=== PATIENT | male | born 1980 | race Caucasian/White ===

== ENCOUNTER 2017-04-07 08:02 | Outpatient (POV) | payer OTHER, SELFPAY | END 2017-04-07 11:02 | disposition home or self-care (01) | PROVIDERS: Visit Provider Podiatrist | DX: M19.171 Post-traumatic osteoarthritis, right ankle and foot (principal) | CPT/HCPCS: 99202; 20600; J1100; J3301; 73630; 73650 ==

== ENCOUNTER → 2018-03-03 09:21 | Outpatient (CLI) | payer OTHER, SELFPAY ==
--- NOTE | 2018-03-03 09:25 | XR_ITS ---
XR foot wt bearing RT 3V HISTORY: ITS.REASON: pain ORDERING PHYSICIAN: Latrice Dickson DPM PATIENT AGE: 37 years COMPARISON: 04/07/2017 FINDINGS: No fracture or dislocation. No lytic or blastic change. There is normal mineralization.. The joint spaces are well-preserved. No significant degenerative/arthritic changes. No erosive changes evident. Sclerosis noted along superior aspect of the calcaneus which may reflect old trauma/degenerative change as previously described lucency along the posterior aspect of the calcaneus possibly due to old external fixator. IMPRESSION: No change with no acute finding. Please see above for detail
--- NOTE | 2018-03-03 09:25 | XR_ITS ---
XR calcaneus RT min 2V CLINICAL INDICATION: Calcaneal pain, prior fracture ITS.REASON: pain ORDERING PHYSICIAN: Latrice Dickson DPM PATIENT AGE: 37 years Comparison: 04/07/2017 FINDINGS: There remains a lucent focus in the posterior aspect of the calcaneus which may represent site of the previous external fixator. There remains sclerosis in the superior aspect of the calcaneus at the mid and posterior subtalar region which may reflect degenerative changes as previously described and may be due to old trauma. Os peroneum once again noted. Overall no significant change compared to the previous study. There is a small area of exostosis along the medial aspect of the calcaneus in the mid aspect seen on the PA view unchanged. IMPRESSION: Overall no change in the appearance of the calcaneus with sclerosis in the subtalar region with postsurgical defect in the posterior calcaneus
== END ==
PROVIDERS: Visit Provider Podiatrist
DX: M19.92 Post-traumatic osteoarthritis, unspecified site (principal); M79.673 Pain in unspecified foot
CPT/HCPCS: 73630; 73650

== ENCOUNTER → 2018-08-25 12:21 | Outpatient (CLI) | payer OTHER, SELFPAY ==
[2018-08-25 13:04] LABS: Basophils # 0.1 K/mm3 (0-0.2); Basophils % 0.7 % (0.1-2.0); Eosinophils # 0.1 K/mm3 (0.0-0.4); Eosinophils % 1.6 % (0.1-12.0); Hematocrit 50.1 % (42.0-52.0); Hemoglobin 17.5 g/dL (14.1-18.0); Lymphocytes # 2.3 K/mm3 (0.7-4.5); Lymphocytes % 33.5 % (10-50); Mean Corpuscular HGB Conc 34.8 g/dL (31.8-35.4); Mean Corpuscular Hemoglobin 30.8 pg (27.0-31.2); Mean Corpuscular Volume 88.4 fl (80-94); Mean Platelet Volume 7.5 fl (7.4-10.4); Monocytes # 0.5 K/mm3 (0.1-1.0); Monocytes % 7.6 % (1.7-9.3); Neutrophils # 3.9 K/mm3 (1.8-7.8); Neutrophils % 56.6 % (37.0-80.0); Platelet Count 194 K/mm3 (142-424); Red Blood Count 5.67 M/mm3 (4.60-6.20); White Blood Count 6.8 K/mm3 (4.8-10.8)
[2018-08-25 15:05] LABS: Alanine Aminotransferase 227 U/L (12-78); Albumin Level 3.7 gm/dL (3.4-5.0); Albumin/Globulin Ratio 0.9 (1.1-1.8); Alkaline Phosphatase 81 U/L (46-116); Anion Gap 10.5 mEq/L (5-15); Aspartate Amino Transferase 109 U/L (15-37); Bilirubin,Total 0.8 mg/dL (0.2-1.0); Blood Urea Nitrogen 10 mg/dL (7-18); Calcium 8.8 mg/dL (8.5-10.1); Carbon Dioxide 28 mmol/L (21.0-32.0); Chloride 105 mmol/L (98-107); Chol/HDL Ratio 4.4 (1-3.5); Cholesterol 221 mg/dL (140-200); Creatinine,Serum 0.96 mg/dL (0.70-1.30); Estimated Glomerular Filt Rate 87 ml/min (>60); GFR (African American) 106 ML/MIN (>60); Globulin 4.2 gm/dl (1.3-3.2); Glucose 128 mg/dL (74-106); HDL Cholesterol 50 mg/dL (27-67); LDL Cholesterol 156 mg/dL (0-130); Potassium 4.5 mmoL/L (3.5-5.1); Sodium 139 mmol/L (136-145); T4 (Thyroxine) 10.3 ug/dl (4.7-13.3); Thyroid Stimulating Hormone 1.74 uIU/ml (0.358-3.740); Total Protein,Serum 7.9 gm/dL (6.4-8.2); Triglycerides 77 mg/dL (30-200); VLDL Cholesterol 15 mg/dL (0-40)
[2018-08-26 11:20] LABS: Hep A Ab, IgM Negative (Negative); Hepatitis B Core Antibody IgM Negative (Negative)
[2018-08-26 13:57] LABS: Hepatitis B Surface Antigen Positive (Negative); Hepatitis C Antibody >11.0 s/co ratio (0.0-0.9)
== END ==
PROVIDERS: Visit Provider Nurse Practitioner Family
DX: Z00.00 Encounter for general adult medical examination without abnormal findings (principal); Z13.220 Encounter for screening for lipoid disorders
CPT/HCPCS: 36415; 80053; 80061; 80074; 84436; 84443; 85025

== ENCOUNTER → 2018-09-04 09:51 | Outpatient (CLI) | payer OTHER, SELFPAY ==
[2018-09-04 10:36] LABS: INR 0.98 (0.9-1.1); Prothrombin Time 10.2 seconds (9.4-11.8)
[2018-09-05 07:19] LABS: HIV Screen 4th Generation wRfx Non Reactive (Non Reactive)
[2018-09-05 18:12] LABS: Hep A Ab, Total Negative (Negative)
[2018-09-13 00:06] LABS: HCV Genotype Charge YES; Hepatitis C Genotype 3 (.)
== END ==
PROVIDERS: Visit Provider Nurse Practitioner Family
DX: R76.8 Other specified abnormal immunological findings in serum (principal)
CPT/HCPCS: 36415; 85610; 86703; 86706; 86708; 87522; 87902; G0432

== ENCOUNTER → 2018-11-23 15:03 | Outpatient (CLI) | payer OTHER, SELFPAY ==
--- NOTE | 2018-11-23 15:06 | CT_ITS ---
CT ankle RT wo con INDICATION: Right heel pain, recent injury, posttraumatic, arthritis of subtalar joint, surgical evaluation for arthrodesis with possible graft ITS.REASON: pain, surgical planning ORDERING PHYSICIAN: Latrice Dickson DPM PATIENT AGE: 38 years COMPARISON: 05/18/2015 TECHNIQUE: Contrast Used: Oral Contrast: Axial images were obtained. Sagittal and coronal reformatted images are reviewed as well. All CT scans at the facility use one or more dose reduction, viz: automated exposure control, ma/kV adjustment per patient size (including targeted exams where dose is matched to indication, i.e. head), or iterative reconstruction technique. FINDINGS: There is mild diffuse osteopenia. The talar dome has an unremarkable appearance. Distal tibia and fibula are unremarkable. No acute fracture or dislocation is evident. There is an old fracture involving the mid aspect of the calcaneus. There are moderate to severe osteoarthritic changes of the posterior subtalar joint greater along the lateral aspect. There are some hypertrophic changes at this area along with osteosclerosis and loss of the joint space. There is an os trigonum. The anterior facet and sustentaculum/middle facet has an unremarkable appearance. There is mild generalized soft tissue edema posteriorly in the calcaneal area. IMPRESSION: 1. Old healed calcaneal fracture 2. 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
== END ==
PROVIDERS: PCP Emergency Medicine; Visit Provider Podiatrist
DX: M19.079 Primary osteoarthritis, unspecified ankle and foot (principal); M19.92 Post-traumatic osteoarthritis, unspecified site; M79.673 Pain in unspecified foot
CPT/HCPCS: 73700

== ENCOUNTER → 2018-12-10 12:19 | Outpatient (CLI) | payer OTHER, SELFPAY ==
--- NOTE | 2018-12-10 | ECG_ITS ---
APPROVED REPORT Exam: Resting ECG HR:62 bpm ECG Measurements Heart Rate 62 AXES TN 174 P 71 QRSd 94 QRS 238 QT 386 T 66 QTc 391 <Conclusion> Normal sinus rhythm Right superior axis deviation Incomplete right bundle branch block Abnormal ECG Electronically signed by : Elvis Donaldson, 12/11/2018 17:40:41
--- NOTE | 2018-12-10 12:30 | XR_ITS ---
PROCEDURE: XR CHEST 2V CLINICAL HISTORY: TOBACCO USE, PRE OP Smoker COMPARISON: No exams were available for comparison FINDINGS: The cardiomediastinal silhouette and pulmonary vascularity are within normal limits. The lungs are clear without infiltrates, suspicious nodules, or pleural effusions. No acute bony abnormalities. IMPRESSION: No acute findings. Dictated by: Jn Romero MD 12/10/2018 12:49 Signed by: <Electronically signed by Jn Romero MD in [place]> 12/10/2018 12:49
[2018-12-10 12:54] LABS: Basophils # 0.1 K/mm3 (0-0.2); Basophils % 0.6 % (0.1-2.0); Eosinophils # 0.1 K/mm3 (0.0-0.4); Hemoglobin 15.8 g/dL (14.1-18.0); Lymphocytes # 2.2 K/mm3 (0.7-4.5); Lymphocytes % 26.9 % (10-50); Mean Corpuscular HGB Conc 32.3 g/dL (31.8-35.4); Mean Corpuscular Hemoglobin 29.4 pg (27.0-31.2); Monocytes # 0.7 K/mm3 (0.1-1.0); Monocytes % 8.2 % (1.7-9.3); Neutrophils % 63.3 % (37.0-80.0); Platelet Count 210 K/mm3 (142-424); Red Blood Count 5.38 M/mm3 (4.60-6.20); Red Cell Distribution Width 13.6 % (11.5-17.5)
[2018-12-10 13:25] LABS: Anion Gap 9.3 mEq/L (5-15); Blood Urea Nitrogen 9 mg/dL (7-18); Calcium 9.4 mg/dL (8.5-10.1); Carbon Dioxide 29 mmol/L (21.0-32.0); Chloride 104 mmol/L (98-107); Creatinine,Serum 0.99 mg/dL (0.70-1.30); Estimated Glomerular Filt Rate 84 ml/min (>60); GFR (African American) 101 ML/MIN (>60); Glucose 86 mg/dL (74-106); Potassium 4.3 mmoL/L (3.5-5.1); Sodium 138 mmol/L (136-145)
[2018-12-11 09:51] LABS: Vitamin D 25 Hydroxy 24.3 ng/mL (30.0-100.0)
[2019-01-12 10:55] LABS: Nicotine COMMENT:
[2019-01-12 10:56] LABS: Cotinine COMMENT:
== END ==
PROVIDERS: Visit Provider Podiatrist
DX: Z01.818 Encounter for other preprocedural examination (principal); M19.071 Primary osteoarthritis, right ankle and foot
CPT/HCPCS: 36415; 71046; 80048; 80323; 82652; 85025; 93005

== ENCOUNTER → 2019-01-14 11:05 | Outpatient (CLI) | payer OTHER, SELFPAY ==
--- NOTE | 2019-01-14 11:08 | XR_ITS ---
PROCEDURE: XR CALCANEUS RT MIN 2V CLINICAL INDICATION: fracture/dislocation Follow-up fracture/ORIF COMPARISON: XR CALCANEUS RT MIN 2V from 12/11/2018 XR ANKLE WT BEARING RT MIN 3V from 01/14/2019 XR FOOT WT BEARING RT 3V from 01/14/2019 FINDINGS: Status post posterior subtalar fusion with 2 lag screws from the posterior aspect of the calcaneus extending obliquely into the talus. Joint space is less well-defined but still visible at the posterior talocalcaneal region. The ankle joint has an unremarkable appearance. There is a prominent os trigonum. There is some faint density noted along the lateral aspect of the ankle/foot and may be related to artifact on the patient or some soft tissue calcification. The mid and forefoot have an unremarkable appearance. IMPRESSION: Status post posterior talocalcaneal fusion. The posterior subtalar joint space is somewhat less well-defined but is still visible Dictated by: Jn Romero MD 01/14/2019 13:03 Electronically signed by Jn Romero MD in [place] 01/14/2019 13:03
== END ==
PROVIDERS: PCP Nurse Practitioner Family; Visit Provider Podiatrist
DX: Z98.890 Other specified postprocedural states (principal); M19.171 Post-traumatic osteoarthritis, right ankle and foot; M21.6X1 Other acquired deformities of right foot; M19.071 Primary osteoarthritis, right ankle and foot; M79.671 Pain in right foot
CPT/HCPCS: 73610; 73630; 73650

== ENCOUNTER → 2019-02-11 10:27 | Outpatient (CLI) | payer OTHER, SELFPAY ==
--- NOTE | 2019-02-11 10:30 | XR_ITS ---
PROCEDURE: XR FOOT WT BEARING RT 3V CLINICAL INDICATION: post-op Follow-up surgery COMPARISON: [id number] XR foot wt bearing RT 3V from 03/03/2018 XR FOOT RT MIN 3V from 12/11/2018 XR FOOT RT 2V from 12/11/2018 XR FOOT WT BEARING RT 3V from 01/14/2019 XR CALCANEUS RT MIN 2V from 01/14/2019 XR CALCANEUS RT MIN 2V from 02/11/2019 FINDINGS: Status post posterior subtalar joint arthrodesis with 2 lag screws extending from the posterior inferior aspect of the calcaneus into the posterior talus. The joint space is somewhat less apparent posteriorly but still visible on the dedicated calcaneal images. IMPRESSION: Status post posterior subtalar joint fusion with the joint space being somewhat less apparent indicating partial fusion. Good alignment. Dictated by: Jn Romero MD 02/11/2019 15:20 Electronically signed by Jn Romero MD in [place] 02/11/2019 15:20
== END ==
PROVIDERS: PCP Nurse Practitioner Family; Visit Provider Podiatrist
DX: Z98.890 Other specified postprocedural states (principal); M19.171 Post-traumatic osteoarthritis, right ankle and foot
CPT/HCPCS: 73630; 73650

== ENCOUNTER 2019-02-25 08:00 | Outpatient (RCR) | payer OTHER, SELFPAY ==
--- NOTE | 2019-02-01 08:42 | HMH.PTOPEV ---
PT Outpatient Evaluation Rehab PT Outpatient Evaluation Start: 02/01/19 08:28 Freq: Status: Active Protocol: Document 02/01/19 08:28 CAMILO (Rec: 02/01/19 08:41 CAMILO [id number]) Electronically Signed By Geo Calhoun, PT 02/01/19 08:28 Outpatient Therapy Subjective History Subjective History Pt presents s/p R foot sx. ( right subtalar joint arthrodesis) on 12/11/18. Pt reports recent transition from knee scooter to WBAT on cam walker, 'it's been a little painful and weak, but seems okay so far'. Pt reports localized R heel area pain w/ WB'ing, and global R foot hypersensitivity. PMH: R comminuted calcaneal fx (), SX. ORIF R CALCANEUS Chief Complaint Pain,Stiff,Swelling, Paresthesia,Weakness Symptom Type Ache,Sharp,Dull,Numbness, Tingling Symptoms Relieved By Rest/Positioning,Ice Symptoms Aggravated By Standing,Physical Activity, Walking Prior Functional Limitations Standing,Walking,Stairs Current Functional Limitations Standing,Walking,Stairs Symptom Description Constant but Variable Level of pain today (0-10) 2 Pain scale - at its best (0-10) 1 Pain scale - at its worst (0-10) 5 Ankle/Foot Eval Gait Observation General Gait Pattern Observation Antalgic Gait Palpation Tenderness right Ankle/Foot Palpation Findings Tenderness Ankle/Foot Palpation Overall Comment 3/4 ACHILLES INSERTION, 4/4 MEDIAL AND LATERAL MIDFOOT ROM Ankle/Foot Dorsiflexion w/Knee Extended 0-10 Active Range Motion (degrees) Ankle/Foot Plantar Flexion Active Range 0-25 of Motion (degrees) Ankle/Foot Eversion Active Range of 0-12 Motion (degrees) Ankle/Foot Inversion Active Range of 0-25 Motion (degrees) Ankle/Foot ROM Limitations Soft Tissue Tightness MMT Ankle Dorsiflexion Strength Grade 4 Good Ankle Plantarflexion Strength Grade 4- Good- Foot Eversion Strength Grade 4- Good- Foot Inversion Strength Grade 4- Good- Outpatient Therapy Assessment Impairments Problems/Impairmments Palpation Tenderness,Impaired Range of Motion,Impaired Strength,Impaired Gait Pattern ,Impaired Walking,Impaired Standing,Impaired Stair
== END 2019-02-25 08:05 | disposition home or self-care (01) ==
LOC: PT 08:00
PROVIDERS: Visit Provider Podiatrist
DX: M21.6X1 Other acquired deformities of right foot (principal); M19.071 Primary osteoarthritis, right ankle and foot; M79.671 Pain in right foot
CPT/HCPCS: 97010; 97014; 97016; 97110; 97112; 97163; G0283

== ENCOUNTER → 2019-04-06 13:56 | Outpatient (CLI) | payer OTHER, SELFPAY ==
[2019-04-06 14:28] LABS: Basophils # 0.1 K/mm3 (0-0.2); Basophils % 0.7 % (0.1-2.0); Eosinophils # 0.1 K/mm3 (0.0-0.4); Eosinophils % 1.5 % (0.1-12.0); Hematocrit 47.1 % (42.0-52.0); Hemoglobin 15.9 g/dL (14.1-18.0); Lymphocytes # 2.9 K/mm3 (0.7-4.5); Lymphocytes % 39.6 % (10-50); Mean Corpuscular HGB Conc 33.7 g/dL (31.8-35.4); Mean Corpuscular Hemoglobin 30.3 pg (27.0-31.2); Mean Corpuscular Volume 89.9 fl (80-94); Mean Platelet Volume 8.1 fl (7.4-10.4); Monocytes # 0.5 K/mm3 (0.1-1.0); Monocytes % 7.3 % (1.7-9.3); Neutrophils # 3.7 K/mm3 (1.8-7.8); Neutrophils % 50.9 % (37.0-80.0); Platelet Count 224 K/mm3 (142-424); Red Blood Count 5.24 M/mm3 (4.60-6.20); Red Cell Distribution Width 13.1 % (11.5-17.5); White Blood Count 7.2 K/mm3 (4.8-10.8)
[2019-04-06 16:18] LABS: Alanine Aminotransferase 44 U/L (12-78); Albumin/Globulin Ratio 1.1 (1.1-1.8); Alkaline Phosphatase 83 U/L (46-116); Anion Gap 15.1 mEq/L (5-15); Aspartate Amino Transferase 21 U/L (15-37); Bilirubin,Total 0.9 mg/dL (0.2-1.0); Blood Urea Nitrogen 10 mg/dL (7-18); Calcium 9.2 mg/dL (8.5-10.1); Carbon Dioxide 26 mmol/L (21.0-32.0); Chloride 103 mmol/L (98-107); Creatinine,Serum 0.88 mg/dL (0.70-1.30); Estimated Glomerular Filt Rate 96 ml/min (>60); GFR (African American) 116 ML/MIN (>60); Globulin 3.8 gm/dl (1.3-3.2); Glucose 82 mg/dL (74-106); Potassium 5.1 mmoL/L (3.5-5.1); Sodium 139 mmol/L (136-145); Total Protein,Serum 7.8 gm/dL (6.4-8.2)
== END ==
PROVIDERS: Visit Provider Nurse Practitioner Acute Care
DX: B19.20 Unspecified viral hepatitis C without hepatic coma (principal); K74.0 Hepatic fibrosis; R74.8 Abnormal levels of other serum enzymes; Z79.899 Other long term (current) drug therapy
CPT/HCPCS: 36415; 80053; 85025; 87522

== ENCOUNTER → 2019-05-04 12:06 | Outpatient (CLI) | payer OTHER, SELFPAY | PROVIDERS: Visit Provider Nurse Practitioner Acute Care | DX: B19.20 Unspecified viral hepatitis C without hepatic coma (principal); Z79.899 Other long term (current) drug therapy | CPT/HCPCS: 36415; 87522 ==

== ENCOUNTER → 2019-05-18 14:10 | Outpatient (CLI) | payer OTHER, SELFPAY ==
[2019-05-18 15:23] LABS: Basophils # 0.1 K/mm3 (0-0.2); Eosinophils # 0.1 K/mm3 (0.0-0.4); Eosinophils % 1.4 % (0.1-12.0); Hematocrit 51.2 % (42.0-52.0); Hemoglobin 16.6 g/dL (14.1-18.0); Lymphocytes # 2.9 K/mm3 (0.7-4.5); Lymphocytes % 38.6 % (10-50); Mean Corpuscular HGB Conc 32.4 g/dL (31.8-35.4); Mean Corpuscular Hemoglobin 29.6 pg (27.0-31.2); Mean Corpuscular Volume 91.6 fl (80-94); Mean Platelet Volume 9.1 fl (7.4-10.4); Monocytes # 0.5 K/mm3 (0.1-1.0); Monocytes % 6.9 % (1.7-9.3); Neutrophils # 3.9 K/mm3 (1.8-7.8); Neutrophils % 52.1 % (37.0-80.0); Platelet Count 246 K/mm3 (142-424); Red Blood Count 5.59 M/mm3 (4.60-6.20); Red Cell Distribution Width 13.2 % (11.5-17.5); White Blood Count 7.5 K/mm3 (4.8-10.8)
[2019-05-18 16:14] LABS: INR 0.97 (0.9-1.1); Prothrombin Time 10.1 seconds (9.4-11.8)
[2019-05-18 16:54] LABS: Alanine Aminotransferase 32 U/L (12-78); Albumin Level 4.1 gm/dL (3.4-5.0); Albumin/Globulin Ratio 1.1 (1.1-1.8); Alkaline Phosphatase 86 U/L (46-116); Anion Gap 15.4 mEq/L (5-15); Aspartate Amino Transferase 25 U/L (15-37); Bilirubin,Total 1.2 mg/dL (0.2-1.0); Blood Urea Nitrogen 9 mg/dL (7-18); Calcium 9.3 mg/dL (8.5-10.1); Carbon Dioxide 27 mmol/L (21.0-32.0); Chloride 104 mmol/L (98-107); Creatinine,Serum 1.07 mg/dL (0.70-1.30); Estimated Glomerular Filt Rate 77 ml/min (>60); GFR (African American) 93 ML/MIN (>60); Globulin 3.6 gm/dl (1.3-3.2); Glucose 108 mg/dL (74-106); Potassium 4.4 mmoL/L (3.5-5.1); Sodium 142 mmol/L (136-145); Total Protein,Serum 7.7 gm/dL (6.4-8.2)
== END ==
PROVIDERS: Visit Provider Nurse Practitioner Acute Care
DX: B19.20 Unspecified viral hepatitis C without hepatic coma (principal); Z79.899 Other long term (current) drug therapy
CPT/HCPCS: 36415; 80053; 85025; 85610; 87522

== ENCOUNTER → 2019-05-27 12:50 | Outpatient (CLI) | payer OTHER, SELFPAY ==
[2019-05-27 14:04] LABS: Alanine Aminotransferase 25 U/L (12-78); Albumin/Globulin Ratio 1.3 (1.1-1.8); Alkaline Phosphatase 66 U/L (46-116); Anion Gap 12.2 mEq/L (5-15); Aspartate Amino Transferase 23 U/L (15-37); Bilirubin,Total 0.7 mg/dL (0.2-1.0); Blood Urea Nitrogen 10 mg/dL (7-18); Calcium 9.2 mg/dL (8.5-10.1); Carbon Dioxide 27 mmol/L (21.0-32.0); Chloride 104 mmol/L (98-107); Creatinine,Serum 0.92 mg/dL (0.70-1.30); Estimated Glomerular Filt Rate 91 ml/min (>60); GFR (African American) 110 ML/MIN (>60); Globulin 3.2 gm/dl (1.3-3.2); Glucose 78 mg/dL (74-106); Potassium 4.2 mmoL/L (3.5-5.1); Sodium 139 mmol/L (136-145); Total Protein,Serum 7.2 gm/dL (6.4-8.2)
== END ==
PROVIDERS: Visit Provider Nurse Practitioner Acute Care
DX: B19.20 Unspecified viral hepatitis C without hepatic coma (principal)
CPT/HCPCS: 36415; 80053

== ENCOUNTER → 2019-06-17 18:04 | Outpatient (CLI) | payer OTHER, SELFPAY ==
[2019-06-17 18:17] LABS: Basophils # 0.1 K/mm3 (0-0.2); Basophils % 0.6 % (0.1-2.0); Eosinophils # 0.2 K/mm3 (0.0-0.4); Eosinophils % 2.6 % (0.1-12.0); Hemoglobin 15.8 g/dL (14.1-18.0); Lymphocytes # 3.1 K/mm3 (0.7-4.5); Lymphocytes % 36.9 % (10-50); Mean Corpuscular HGB Conc 33.7 g/dL (31.8-35.4); Mean Corpuscular Hemoglobin 29.4 pg (27.0-31.2); Mean Corpuscular Volume 87.1 fl (80-94); Monocytes # 0.6 K/mm3 (0.1-1.0); Monocytes % 6.7 % (1.7-9.3); Neutrophils # 4.4 K/mm3 (1.8-7.8); Neutrophils % 53.2 % (37.0-80.0); Platelet Count 229 K/mm3 (142-424); Red Blood Count 5.39 M/mm3 (4.60-6.20); Red Cell Distribution Width 12.8 % (11.5-17.5); White Blood Count 8.3 K/mm3 (4.8-10.8)
[2019-06-17 18:54] LABS: Alanine Aminotransferase 18 U/L (12-78); Albumin Level 4.5 g/dl (3.5-5.0); Albumin/Globulin Ratio 1.5 (1.1-1.8); Alkaline Phosphatase 55 U/L (38-126); Anion Gap 11.6 mEq/L (5-15); Aspartate Amino Transferase 28 U/L (17-59); Bilirubin,Total 0.4 mg/dl (0.2-1.3); Blood Urea Nitrogen 9 mg/dl (9-20); Calcium 9.6 mg/dl (8.4-10.2); Carbon Dioxide 27 mmol/L (22.0-30.0); Chloride 105 mmol/L (98-107); Estimated Glomerular Filt Rate 93 ml/min (>60); GFR (African American) 113 ML/MIN (>60); Glucose 90 mg/dl (74-100); Potassium 4.6 mmoL/L (3.5-5.1); Sodium 139 mmol/L (136-145); Total Protein,Serum 7.5 g/dl (6.3-8.2)
== END ==
PROVIDERS: Visit Provider Nurse Practitioner Acute Care
DX: B19.20 Unspecified viral hepatitis C without hepatic coma (principal); Z79.899 Other long term (current) drug therapy
CPT/HCPCS: 36415; 80053; 85025; 87522

== ENCOUNTER → 2019-08-10 13:19 | Outpatient (CLI) | payer OTHER, SELFPAY ==
[2019-08-10 14:09] LABS: Basophils # 0.1 K/mm3 (0-0.2); Basophils % 1.5 % (0.1-2.0); Eosinophils # 0.1 K/mm3 (0.0-0.4); Hematocrit 48.9 % (42.0-52.0); Hemoglobin 16.1 g/dL (14.1-18.0); Lymphocytes # 2.6 K/mm3 (0.7-4.5); Lymphocytes % 31.1 % (10-50); Mean Corpuscular HGB Conc 32.9 g/dL (31.8-35.4); Mean Corpuscular Hemoglobin 28.9 pg (27.0-31.2); Mean Corpuscular Volume 87.7 fl (80-94); Mean Platelet Volume 8.3 fl (7.4-10.4); Monocytes # 0.5 K/mm3 (0.1-1.0); Monocytes % 5.3 % (1.7-9.3); Neutrophils # 5.2 K/mm3 (1.8-7.8); Neutrophils % 61.1 % (37.0-80.0); Platelet Count 236 K/mm3 (142-424); Red Blood Count 5.57 M/mm3 (4.60-6.20); Red Cell Distribution Width 13.2 % (11.5-17.5); White Blood Count 8.5 K/mm3 (4.8-10.8)
[2019-08-10 14:47] LABS: INR 0.96 (0.9-1.1)
[2019-08-10 15:33] LABS: Chloride 102 mmol/L (98-107); Sodium 139 mmol/L (136-145)
[2019-08-10 15:36] LABS: Alanine Aminotransferase 19 U/L (12-78); Albumin Level 4.7 g/dl (3.5-5.0); Albumin/Globulin Ratio 1.5 (1.1-1.8); Alkaline Phosphatase 53 U/L (38-126); Aspartate Amino Transferase 31 U/L (17-59); Bilirubin,Total 0.8 mg/dl (0.2-1.3); Blood Urea Nitrogen 11 mg/dl (9-20); Carbon Dioxide 26 mmol/L (22.0-30.0); Estimated Glomerular Filt Rate 107 ml/min (>60); GFR (African American) 130 ML/MIN (>60); Globulin 3.1 g/dL (1.3-3.2); Total Protein,Serum 7.8 g/dl (6.3-8.2)
[2019-08-10 15:37] LABS: Calcium 10.2 mg/dl (8.4-10.2); Glucose 77 mg/dl (74-100)
[2019-08-13 14:33] LABS: HBV IU/mL <10 IU/mL (.)
== END ==
PROVIDERS: Visit Provider Nurse Practitioner Acute Care
DX: B19.20 Unspecified viral hepatitis C without hepatic coma (principal); Z79.899 Other long term (current) drug therapy
CPT/HCPCS: 36415; 80053; 85025; 85610; 87517; 87522

== ENCOUNTER → 2019-11-02 12:08 | Outpatient (CLI) | payer OTHER, SELFPAY ==
[2019-11-02 13:24] LABS: Basophils # 0.1 K/mm3 (0-0.2); Basophils % 0.6 % (0.1-2.0); Eosinophils # 0.1 K/mm3 (0.0-0.4); Eosinophils % 1.4 % (0.1-12.0); Hematocrit 50.3 % (42.0-52.0); Hemoglobin 16.8 g/dL (14.1-18.0); Lymphocytes # 3.2 K/mm3 (0.7-4.5); Lymphocytes % 34.3 % (10-50); Mean Corpuscular HGB Conc 33.5 g/dL (31.8-35.4); Mean Corpuscular Hemoglobin 29.7 pg (27.0-31.2); Mean Corpuscular Volume 88.6 fl (80-94); Mean Platelet Volume 8.2 fl (7.4-10.4); Monocytes # 0.6 K/mm3 (0.1-1.0); Monocytes % 6.1 % (1.7-9.3); Neutrophils # 5.4 K/mm3 (1.8-7.8); Neutrophils % 57.5 % (37.0-80.0); Platelet Count 227 K/mm3 (142-424); Red Blood Count 5.68 M/mm3 (4.60-6.20); Red Cell Distribution Width 13.5 % (11.5-17.5); White Blood Count 9.4 K/mm3 (4.8-10.8)
[2019-11-02 13:31] LABS: INR 0.97 (0.9-1.1)
[2019-11-02 13:46] LABS: Blood Urea Nitrogen 9 mg/dl (9-20); Chloride 101 mmol/L (98-107); Estimated Glomerular Filt Rate 93 ml/min (>60); GFR (African American) 113 ML/MIN (>60); Potassium 5.4 mmoL/L (3.5-5.1); Sodium 141 mmol/L (136-145)
[2019-11-02 13:47] LABS: Alanine Aminotransferase 20 U/L (12-78); Albumin Level 4.7 g/dl (3.5-5.0); Albumin/Globulin Ratio 1.6 (1.1-1.8); Alkaline Phosphatase 56 U/L (38-126); Anion Gap 15.4 mEq/L (5-15); Aspartate Amino Transferase 30 U/L (17-59); Bilirubin,Total 0.7 mg/dl (0.2-1.3); Calcium 10.2 mg/dl (8.4-10.2); Carbon Dioxide 30 mmol/L (22.0-30.0); Globulin 2.9 g/dL (1.3-3.2); Glucose 96 mg/dl (74-100); Total Protein,Serum 7.6 g/dl (6.3-8.2)
[2019-11-12 10:00] LABS: HBV IU/mL <10 IU/mL (.)
== END ==
PROVIDERS: Visit Provider Nurse Practitioner Acute Care
DX: B19.20 Unspecified viral hepatitis C without hepatic coma (principal); Z79.899 Other long term (current) drug therapy
CPT/HCPCS: 36415; 80053; 85025; 85610; 87517; 87522

== ENCOUNTER → 2019-12-16 17:50 | Outpatient (CLI) | payer OTHER, SELFPAY ==
[2019-12-16 18:12] LABS: Basophils # 0.1 K/mm3 (0-0.2); Basophils % 0.4 % (0.1-2.0); Eosinophils # 0.2 K/mm3 (0.0-0.4); Eosinophils % 1.5 % (0.1-12.0); Hematocrit 47.8 % (42.0-52.0); Hemoglobin 16.6 g/dL (14.1-18.0); Lymphocytes # 2.9 K/mm3 (0.7-4.5); Lymphocytes % 27.4 % (10-50); Mean Corpuscular HGB Conc 34.8 g/dL (31.8-35.4); Mean Corpuscular Hemoglobin 30.3 pg (27.0-31.2); Mean Corpuscular Volume 87.2 fl (80-94); Mean Platelet Volume 9.3 fl (7.4-10.4); Monocytes # 0.7 K/mm3 (0.1-1.0); Monocytes % 6.6 % (1.7-9.3); Neutrophils # 6.7 K/mm3 (1.8-7.8); Neutrophils % 64.1 % (37.0-80.0); Platelet Count 227 K/mm3 (142-424); Red Blood Count 5.48 M/mm3 (4.60-6.20); Red Cell Distribution Width 13.2 % (11.5-17.5); White Blood Count 10.5 K/mm3 (4.8-10.8)
[2019-12-16 18:56] LABS: Alanine Aminotransferase 18 U/L (12-78); Albumin Level 4.6 g/dl (3.5-5.0); Albumin/Globulin Ratio 1.6 (1.1-1.8); Alkaline Phosphatase 59 U/L (38-126); Anion Gap 12.9 mEq/L (5-15); Aspartate Amino Transferase 31 U/L (17-59); Bilirubin,Total 0.8 mg/dl (0.2-1.3); Blood Urea Nitrogen 11 mg/dl (9-20); Calcium 9.7 mg/dl (8.4-10.2); Carbon Dioxide 28 mmol/L (22.0-30.0); Chloride 104 mmol/L (98-107); Chol/HDL Ratio 6.4 (1-3.5); Cholesterol 249 mg/dl (140-200); Estimated Glomerular Filt Rate 124 ml/min (>60); GFR (African American) 150 ML/MIN (>60); Globulin 2.8 g/dL (1.3-3.2); Glucose 90 mg/dl (74-100); HDL Cholesterol 39 mg/dl (40-60); Potassium 3.9 mmoL/L (3.5-5.1); Sodium 141 mmol/L (136-145); Total Protein,Serum 7.4 g/dl (6.3-8.2); Triglycerides 154 mg/dl (30-150); VLDL Cholesterol 31 mg/dL (0-40)
[2019-12-16 19:08] LABS: Direct LDL Cholesterol 174.84 mg/dL (100-129)
[2019-12-16 19:16] LABS: T4 (Thyroxine) 9.9 ug/dl (5.53-11.0)
== END ==
PROVIDERS: Visit Provider Nurse Practitioner Family
DX: B19.10 Unspecified viral hepatitis B without hepatic coma (principal); B19.20 Unspecified viral hepatitis C without hepatic coma; R53.83 Other fatigue
CPT/HCPCS: 80053; 80061; 84436; 84443; 85025

== ENCOUNTER 2020-04-30 12:12 | Emergency (ER) | payer OTHER, SELFPAY ==
[2020-04-30 13:45] VITALS: PULSE 74; RESP 20; TEMP 36.9; O2SAT 98; BMI 23.0
--- NOTE | 2020-04-30 14:01 | HMH.EDUTC ---
[facility] [place] Disposition Clinical Impression: Encounter for laboratory testing for COVID-19 virus Disposition: Home, Self-Care Condition on Discharge: Good Instructions: DI for COVID-19 (Suspected or Confirmed ), Coronavirus Disease 2019, Preventing the Spread of Coronavirus Discharge Instructions Additional Instructions: *Monitor Temp, Over the counter Motrin or Tylenol as directed/as needed Tylenol every 4 hours and Motrin every 6 hours (as long as your family doctor has told you that you can take it) for fever or pain. and straight to ER if unable to lower temp less than 101.0 after medication given Follow up IMMEDIATELY for new or worsening symptoms or no Noticeable improvement over the next 48-72 hours. 911 for difficulty breathing or swallowing You were tested for today for COVID19 your test result should be back in the next 24-48 hours, you may call to the [facility] to see if your test results are back in the next 48 hours [phone] [facility] hours are 9am-9pm You was given a handout with instructions for Self Quarantine and Self isolation for while you wait on test results and what to do if they are positive If you are positive the Health Dept will be contacting you also Referrals: Negin Alejandra APRN [Primary Care Provider] - As needed Forms: Work/School Release Time of Disposition: 14:03 Medical Decision Making - Reji Inquiry Pt receiving controlled substance: No Reji was queried for this patient: No Vital Signs: 04/30/20 13:45 Temperature 98.5 F Temperature Source Oral Pulse Rate [Left] 74 Respiratory Rate 20 02 Sat by Pulse Oximetry 98 Oxygen Delivery Method Room Air [facility] [place] HPI - General Stated complaint: Covid test Time Seen by Provider: 04/30/20 14:01 Mode of Arrival: Ambulatory Source of Information: Patient Limitations: No Limitations Description of Symptoms (Recalled from Triage Doc. by RN): COVID TEST D/T INDIRECT EXPOSURE. DENIES SYMPTOMS HEENT Symptoms (Recalled from RN notes): No Resp Symptoms (Recalled from RN notes): No Skin Symptoms (Recalled from RN notes): No MS Symptoms (Recalled from RN notes): No Functional Status (Recalled from RN notes): WNL - History of Present Illness Provider Complaint: Requesting COVID test states that child was recently around someone that tested positive for COVID State that he is not having any symptoms just wanted to be tested - Related Data Home Medications Medication Instructions Recorded Confirmed entecavir 0.5 mg tablet 0.5 mg PO DAILY 11/26/18 03/23/20 Allergies Allergy/AdvReac Type Severity Reaction Status Date / Time No Known Allergies Allergy Verified 03/23/20 08:18 - Worker's Comp Is this a Worker's Comp case?: No H History - Hepatitis A Screen Drug use history?: No High risk sexual behaviors?: No History of sexually transmitted infection?: No Currently employed?: No Childcare worker?: No Do you have indoor plumbing?: Yes Do you have electricity?: Yes Attestation statement:: This patient has been screened for Hepatitis A risk factors. I have reviewed the patient's past medical history: Yes Medical History: Reports:: Hepatitis Denies:: Aneurysm, Arrhythmia, Asthma, Atrial Fibrillation, Cancer, Chronic Obstructive Pulmonary Disease (COPD), Cerebrovascular Accident, Diabetes Mellitus Type 1, Diabetes Mellitus Type 2, Gastroesophageal Reflux Disease(GERD), Hyperlipidemia, Hypertension, Internal Pacemaker, MRSA, Myocardial Infarction, Seizures Other Medical History: Reports: Sinus Problems. Denies: Arthritis, Blood Transfusion Reaction, Hypothyroidism, Thyroid Disease Laterality Cases: Right: Other Other Surgeries: Yes: Other (right ankle/foot). No: Pacemaker Amputation: No Fractures: Yes Comment: Right Foot 2016 - Social History Smoking Status: Current every day smoker Tobacco Type: cigarettes # Packs/Day (cigarettes): 1 Alcohol Intake: never Alcohol Intake Frequency:: other Substance Use Type: denies use Occupat
[2020-04-30 14:09] VITALS: BP 00/00; PULSE 74; RESP 20; TEMP 36.9; O2SAT 98
== END 2020-04-30 14:12 | disposition home or self-care (01) ==
PROVIDERS: Emergency Provider Nurse Practitioner; PCP Nurse Practitioner Family
DX: Z20.822 Contact with and (suspected) exposure to COVID-19 (principal); E03.9 Hypothyroidism, unspecified; F17.210 Nicotine dependence, cigarettes, uncomplicated
CPT/HCPCS: 99202; G0463; U0003

== ENCOUNTER 2020-05-05 11:05 | Emergency (ER) | payer OTHER, SELFPAY ==
[2020-05-05 11:40] VITALS: BP 137/91; PULSE 67; RESP 20; TEMP 37; O2SAT 100; BMI 23.7
--- NOTE | 2020-05-05 11:58 | HMH.EDUTC ---
[facility] [place] Disposition Clinical Impression: Exposure to COVID-19 virus Disposition: Home, Self-Care Condition on Discharge: Good Instructions: Preventing the Spread of Coronavirus Discharge Instructions Referrals: Negin Alejandra APRN [Primary Care Provider] - Time of Disposition: 12:04 Medical Decision Making - Reji Inquiry Pt receiving controlled substance: No Vital Signs: 05/05/20 11:40 Temperature 98.6 F Temperature Source Oral Pulse Rate [Right Brachial] 67 Respiratory Rate 20 Blood Pressure [Right Arm] 137/91 H Blood Pressure Mean [Right Arm] 106 Blood Pressure Source [Right Arm] Automatic Cuff Blood Pressure Position [Right Arm] Sitting 02 Sat by Pulse Oximetry 100 Oxygen Delivery Method Room Air [facility] [place] HPI - General Stated complaint: covid exposure Time Seen by Provider: 05/05/20 11:58 Mode of Arrival: Ambulatory Source of Information: Patient Limitations: No Limitations Description of Symptoms (Recalled from Triage Doc. by RN): COVID TEST D/T EXPOSURE; DENIES SYMPTOMS HEENT Symptoms (Recalled from RN notes): No Resp Symptoms (Recalled from RN notes): No Skin Symptoms (Recalled from RN notes): No MS Symptoms (Recalled from RN notes): No Functional Status (Recalled from RN notes): WNL - History of Present Illness Provider Complaint: is positive for COVID19 and he needs to be tested at the health department's advice. Currently asymptomatic. Relieving factors: none Exacerbating factors: none Associated symptoms: denies other symptoms Treatments prior to arrival: none - Related Data Home Medications Medication Instructions Recorded Confirmed entecavir 0.5 mg tablet 0.5 mg PO DAILY 11/26/18 03/23/20 Allergies Allergy/AdvReac Type Severity Reaction Status Date / Time No Known Allergies Allergy Verified 03/23/20 08:18 - Worker's Comp Is this a Worker's Comp case?: No [facility] History - Hepatitis A Screen Drug use history?: No High risk sexual behaviors?: No History of sexually transmitted infection?: No Currently employed?: No Childcare worker?: No Do you have indoor plumbing?: Yes Do you have electricity?: Yes Attestation statement:: This patient has been screened for Hepatitis A risk factors. I have reviewed the patient's past medical history: Yes Medical History: Reports:: Hepatitis Denies:: Aneurysm, Arrhythmia, Asthma, Atrial Fibrillation, Cancer, Chronic Obstructive Pulmonary Disease (COPD), Cerebrovascular Accident, Diabetes Mellitus Type 1, Diabetes Mellitus Type 2, Gastroesophageal Reflux Disease(GERD), Hyperlipidemia, Hypertension, Internal Pacemaker, MRSA, Myocardial Infarction, Seizures Other Medical History: Reports: Sinus Problems. Denies: Arthritis, Blood Transfusion Reaction, Hypothyroidism, Thyroid Disease Laterality Cases: Right: Other Other Surgeries: Yes: Other (right ankle/foot). No: Pacemaker Amputation: No Fractures: Yes Comment: Right Foot 2015 - Social History Smoking Status: Current every day smoker Tobacco Type: cigarettes # Packs/Day (cigarettes): 1 Alcohol Intake: never Alcohol Intake Frequency:: other Substance Use Type: denies use Occupational Status: other Housing: house Household Members: spouse, children Family Hx:: Cancer ROS Obtained: Yes All systems reviewed & no additional complaints Physical Exam - General General appearance: alert, in no apparent distress - Head Head exam: normocephalic - Eye Eye exam: Present: PERRL - ENT ENT exam: Present: normal oropharynx - Respiratory Respiratory exam: Present: normal lung sounds bilaterally - Cardiovascular Cardiovascular exam: Present: regular rate, normal rhythm - Neurological Exam Neurological exam: Present: alert, oriented X3 - Psychiatric Psychiatric exam: Present: normal affect, normal mood - Skin Skin exam: Present: warm, dry, intact
[2020-05-05 12:09] VITALS: BP 137/91; PULSE 67; RESP 20; TEMP 37; O2SAT 100
[2020-05-06 11:48] LABS: Covid-19 Nasal PCR Sendout P&C Negative
== END 2020-05-05 12:13 | disposition home or self-care (01) ==
PROVIDERS: Emergency Provider Physician Assistant; PCP Nurse Practitioner Family
DX: Z20.822 Contact with and (suspected) exposure to COVID-19 (principal); B19.10 Unspecified viral hepatitis B without hepatic coma; E03.9 Hypothyroidism, unspecified; F17.210 Nicotine dependence, cigarettes, uncomplicated; Z79.899 Other long term (current) drug therapy
CPT/HCPCS: 99202; G0463; U0004

== ENCOUNTER → 2020-05-15 16:27 | Outpatient (CLI) | payer OTHER, SELFPAY ==
--- NOTE | 2020-05-15 16:31 | XR_ITS ---
PROCEDURE: XR ANKLE WT BEARING RT MIN 3V CLINICAL INDICATION: 1 year post-op Follow-up surgery COMPARISON: CR ANKR3 ANKLE-RT-3 VIEWS from 05/18/2015 CR XR ANKLE WT BEARING RT MIN 3V from 01/14/2019 FINDINGS: S/p talocalcaneal fusion. Two lag screws remain in place in good alignment. Prominent os trigonum noted. IMPRESSION: Good alignment status post talocalcaneal fusion Dictated by: Jn Romero MD 05/15/2020 17:12 Jn Romero MD in [place] 05/15/2020 17:12
--- NOTE | 2020-05-15 16:31 | XR_ITS ---
PROCEDURE: XR FOOT WT BEARING RT 3V CLINICAL INDICATION: foot pain COMPARISON: CR XR FOOT RT MIN 3V from 12/11/2018 CR XR FOOT RT 2V from 12/11/2018 CR XR FOOT WT BEARING RT 3V from 01/14/2019 CR XR FOOT WT BEARING RT 3V from 02/11/2019 FINDINGS: No fracture or dislocation. No lytic or blastic change. There is normal mineralization. Prior talocalcaneal fusion with [address] Other findings:None. IMPRESSION: Prior talocalcaneal fusion otherwise negative Dictated by: Jn Romero MD 05/15/2020 17:11 Jn Romero MD in [place] 05/15/2020 17:11
== END ==
PROVIDERS: PCP Nurse Practitioner Family; Visit Provider Podiatrist
DX: M77.51 Other enthesopathy of right foot and ankle (principal); Z98.890 Other specified postprocedural states
CPT/HCPCS: 73610; 73630

== ENCOUNTER → 2020-06-23 16:25 | Outpatient (CLI) | payer OTHER, SELFPAY ==
[2020-06-23 17:35] LABS: Alanine Aminotransferase 17 U/L (12-78); Albumin Level 4.7 g/dl (3.5-5.0); Albumin/Globulin Ratio 1.6 (1.1-1.8); Alkaline Phosphatase 63 U/L (38-126); Anion Gap 10.3 mEq/L (5-15); Aspartate Amino Transferase 32 U/L (17-59); Bilirubin,Total 0.8 mg/dl (0.2-1.3); Blood Urea Nitrogen 9 mg/dl (9-20); Calcium 9.9 mg/dl (8.4-10.2); Carbon Dioxide 30 mmol/L (22.0-30.0); Chloride 102 mmol/L (98-107); Estimated Glomerular Filt Rate 107 ml/min (>60); GFR (African American) 129 ML/MIN (>60); Globulin 2.9 g/dL (1.3-3.2); Glucose 102 mg/dl (74-100); Potassium 4.3 mmoL/L (3.5-5.1); Sodium 138 mmol/L (136-145); Total Protein,Serum 7.6 g/dl (6.3-8.2)
[2020-06-26 15:02] LABS: Hep Be Ag Positive (Negative)
[2020-06-26 19:57] LABS: Hepatitis Be Antibody Negative (Negative)
[2020-06-29 05:22] LABS: HBV Geno CHG YES; HBV IU/mL <10 IU/mL (.)
== END ==
PROVIDERS: Visit Provider Nurse Practitioner Acute Care
DX: B19.10 Unspecified viral hepatitis B without hepatic coma (principal)
CPT/HCPCS: 36415; 80053; 86707; 87350; 87517; 87912

== ENCOUNTER 2020-12-23 12:33 | Emergency (ER) | payer OTHER, SELFPAY ==
[2020-12-23 14:00] VITALS: BP 142/73; PULSE 80; RESP 19; TEMP 37; O2SAT 100; BMI 24.4
--- NOTE | 2020-12-23 14:20 | HMH.EDUTC ---
[facility] [place] Clinical Impression: Encounter for laboratory testing for COVID-19 virus, Exposure to COVID-19 virus Disposition: Home, Self-Care Condition on Discharge: Good Instructions: DI for COVID-19 (Suspected or Confirmed ), Preventing the Spread of Coronavirus Discharge Instructions Additional Instructions: *Monitor Temp, Over the counter Motrin or Tylenol as directed/as needed Tylenol every 4 hours and Motrin every 6 hours (as long as your family doctor has told you that you can take it) for fever or pain. and straight to ER if unable to lower temp less than 101.0 after medication given Follow up IMMEDIATELY for new or worsening symptoms or no Noticeable improvement over the next 48-72 hours. 911 for difficulty breathing or swallowing You were tested for today for COVID19 your test result should be back in the next 24-48 hours, You was given written instructions for [facility] portal you can see your results there when they come back you may check it often to see if they are done You was given a handout with instructions for Self Quarantine and Self isolation for while you wait on test results and what to do if they are positive If you are positive the Health Dept will be contacting you also Make sure to take your Vitamins Vit. C Vit D and Zinc if you can take them Referrals: Negin Alejandra APRN [Primary Care Provider] - As needed Forms: Work/School Release Medical Decision Making - Reji Inquiry Pt receiving controlled substance: No Reji was queried for this patient: No Vital Signs: 12/23/20 14:00 Temperature 98.6 F Temperature Source Oral Pulse Rate [Right Brachial] 80 Respiratory Rate 19 Blood Pressure [Right Arm] 142/73 H Blood Pressure Mean [Right Arm] 96 Blood Pressure Source [Right Arm] Automatic Cuff Blood Pressure Position [Right Arm] Sitting 02 Sat by Pulse Oximetry 100 Oxygen Delivery Method Room Air Orders (Tests/Meds): ORDERS Category Date Time Status Covid-19 Nasal PCR ([facility]) Routine Lab 12/23/20 14:03 Received [facility] [place] - General Stated complaint: exposure,symtoms Time Seen by Provider: 12/23/20 14:20 Mode of Arrival: Ambulatory Source of Information: Patient Limitations: No Limitations Description of Symptoms (Recalled from Triage Doc. by RN): COVID TEST D/T EXPOSURE. C/O HEADACHE, STOMACH ACHE AND NAUSEA HEENT Symptoms (Recalled from RN notes): Yes Resp Symptoms (Recalled from RN notes): No Skin Symptoms (Recalled from RN notes): No MS Symptoms (Recalled from RN notes): No Functional Status (Recalled from RN notes): WNL - History of Present Illness Provider Complaint: Patient states that he has been around family that recently tested positice for COVID States that today he had a little headache and nausea but better now but due to close exposure he wanted to get tested - Related Data Home Medications Medication Instructions Recorded Confirmed entecavir 0.5 mg tablet 0.5 mg PO DAILY 11/26/18 05/16/20 Allergies Allergy/AdvReac Type Severity Reaction Status Date / Time No Known Allergies Allergy Verified 05/16/20 08:36 - Worker's Comp Is this a Worker's Comp case?: No [facility] History - Hepatitis A Screen Drug use history?: No High risk sexual behaviors?: No History of sexually transmitted infection?: No Currently employed?: No Childcare worker?: No Do you have indoor plumbing?: Yes Do you have electricity?: Yes Attestation statement:: This patient has been screened for Hepatitis A risk factors. I have reviewed the patient's past medical history: Yes Medical History: Reports:: Hepatitis Denies:: Aneurysm, Arrhythmia, Asthma, Atrial Fibrillation, Cancer, Chronic Obstructive Pulmonary Disease (COPD), Cerebrovascular Accident, Diabetes Mellitus Type 1, Diabetes Mellitus Type 2, Gastroesophageal Reflux Disease(GERD), Hyperlipidemia, Hypertension, Internal Pacemaker, MRSA, Myocardial Infarction, Seizures Other Medical History: Reports: Sinu
[2020-12-23 14:25] VITALS: BP 142/73; PULSE 80; RESP 19; TEMP 37; O2SAT 100
== END 2020-12-23 14:30 | disposition home or self-care (01) ==
PROVIDERS: Emergency Provider Nurse Practitioner; PCP Nurse Practitioner Family
DX: Z20.822 Contact with and (suspected) exposure to COVID-19 (principal); R51.9 Headache, unspecified; R10.9 Unspecified abdominal pain; R11.0 Nausea
CPT/HCPCS: 99202; G0463; U0003

== ENCOUNTER → 2021-01-15 15:38 | Outpatient (CLI) | payer OTHER, SELFPAY | PROVIDERS: Visit Provider Nurse Practitioner Family | DX: Z20.822 Contact with and (suspected) exposure to COVID-19 (principal); U07.1 COVID-19 | CPT/HCPCS: C9803; U0003; U0005 ==

== ENCOUNTER 2021-02-02 20:13 | Emergency (ER) | payer OTHER, SELFPAY ==
[2021-02-02 20:20] VITALS: BP 142/91; PULSE 102; RESP 19; TEMP 37; O2SAT 98; BMI 21.7
[2021-02-02 20:56] VITALS: BP 142/91; PULSE 102; RESP 19; TEMP 37; O2SAT 98
--- NOTE | 2021-02-02 21:07 | HMH.EDUTC ---
[facility] [place] Clinical Impression: Laceration Disposition: Home, Self-Care Condition on Discharge: Good Instructions: How to Care for a Laceration After Repair, Laceration Repair Additional Instructions: Suture instructions: You have required stitches today. Please read the following instructions so you know how to care for them: 1. Keep wound area dry for the first 24 hours. 2 May clean gently with mild soap and water, after 48 hours to prevent crusting over suture knots. 3. You may shower if your provider gives permission but do not take a bath until the skin is healed.. 4. Never leave a wet dressing or Band-Aid on your stitches as this allows bacteria to reach the area and may cause infection. Band-aids can cause the wound to sweat and not recommended to wear for long periods of time Watch for signs of infection: Increasing redness, tenderness or warmth around the suture site Unusual swelling around the site Appearance of pus around each suture or any red streaks Fever If you develop any of the above signs or symptoms of infection, Follow up with Family Physician immediately 5. Suture removal in _-12___days 6. Return to [facility] or follow up with family doctor for removal. This can be done by any medical provider during regular hours on Friday through Friday, by appointment. Referrals: Negin Alejandra APRN [Primary Care Provider] - As needed Time of Disposition: 21:14 Medical Decision Making - Reji Inquiry Pt receiving controlled substance: No Reji was queried for this patient: No Vital Signs: 02/02/21 20:20 02/02/21 20:56 Temperature 98.6 F 98.6 F Temperature Source Oral Pulse Rate 102 H Pulse Rate [Right Brachial] 102 H Respiratory Rate 19 19 Blood Pressure 142/91 H Blood Pressure [Right Arm] 142/91 H Blood Pressure Mean [Right Arm] 108 Blood Pressure Source [Right Arm] Automatic Cuff Blood Pressure Position [Right Arm] Sitting 02 Sat by Pulse Oximetry 98 Oxygen Delivery Method Room Air [facility] [place] - General Stated complaint: AO 02/03 2000 Lac to L hand Time Seen by Provider: 02/02/21 20:30 Mode of Arrival: Ambulatory Source of Information: Patient, Spouse Limitations: No Limitations Description of Symptoms (Recalled from Triage Doc. by RN): PATIENT C/O LACERATION TO LEFT HAND AFTER A GLASS BOWL THAT HE WAS WASHING BROKE HEENT Symptoms (Recalled from RN notes): No Resp Symptoms (Recalled from RN notes): No Skin Symptoms (Recalled from RN notes): Yes MS Symptoms (Recalled from RN notes): No Functional Status (Recalled from RN notes): WNL - History of Present Illness Provider Complaint: Patient states that he was washing glass bowl when it broke and cut him on the top of his left hand between ring finger and little finger States that he immediately applied pressure and looked at it and noticed it needed stitches so he came in to get it checked States that last tetanus shot was 2-3 yrs ago - Related Data Home Medications Medication Instructions Recorded Confirmed entecavir 0.5 mg tablet 0.5 mg PO DAILY 11/26/18 02/02/21 Allergies Allergy/AdvReac Type Severity Reaction Status Date / Time No Known Allergies Allergy Verified 01/15/21 11:58 - Worker's Comp Is this a Worker's Comp case?: No [facility] History - Hepatitis A Screen Drug use history?: No High risk sexual behaviors?: No History of sexually transmitted infection?: No Currently employed?: No Childcare worker?: No Do you have indoor plumbing?: Yes Do you have electricity?: Yes Attestation statement:: This patient has been screened for Hepatitis A risk factors. I have reviewed the patient's past medical history: Yes Medical History: Reports:: Hepatitis Denies:: Aneurysm, Arrhythmia, Asthma, Atrial Fibrillation, Cancer, Chronic Obstructive Pulmonary Disease (COPD), Cerebrovascular Accident, Diabetes Mellitus Type 1, Diabetes Mellitus Type 2, Gastroesophageal Reflux Disease(GERD), Hyperlipidemia, Hyperte
== END 2021-02-02 21:15 | disposition home or self-care (01) ==
PROVIDERS: Emergency Provider Nurse Practitioner; PCP Nurse Practitioner Family
DX: S61.412A Laceration without foreign body of left hand, initial encounter (principal); W25.XXXA Contact with sharp glass, initial encounter; Y92.010 Kitchen of single-family (private) house as the place of occurrence of the external cause; E03.9 Hypothyroidism, unspecified
CPT/HCPCS: 12001; 99202; G0463

== ENCOUNTER → 2021-03-09 13:37 | Outpatient (CLI) | payer OTHER, SELFPAY ==
--- NOTE | 2021-03-09 14:25 | CT_ITS ---
PROCEDURE INFORMATION: Exam: CT Chest Without Contrast; Diagnostic Exam date and time: 03/09/2021 2:25 PM Age: 40 years old Clinical indication: Angina pectoris; Patient HX: Chest pain; Additional info: Chest pain/tob use TECHNIQUE: Imaging protocol: Diagnostic computed tomography of the chest without contrast. Radiation optimization: All CT scans at this facility use at least one of these dose optimization techniques: automated exposure control; mA and/or kV adjustment per patient size (includes targeted exams where dose is matched to clinical indication); or iterative reconstruction. COMPARISON: DX XR CHEST 2V 12/10/2018 12:33 PM FINDINGS: Lungs: Unremarkable. No consolidation. No masses. There are 2 calcified granulomas noted within the right middle lobe. Pleural spaces: Unremarkable. No pneumothorax. No pleural effusion. Heart: Unremarkable. No cardiomegaly. No pericardial effusion. Coronary arteries: No evidence of coronary artery calcification. Mediastinal space: No evidence of mediastinal or hilar mass. Aorta: Unremarkable. No aortic aneurysm. Lymph nodes: Unremarkable. No enlarged lymph nodes. Granulomatous calcification within lymph nodes of each hilus and within the subcarinal region noted. Bones/joints: Unremarkable. No acute fracture. Soft tissues: Granulomatous calcification of the spleen is identified. IMPRESSION: No evidence of acute process within the chest.
== END ==
PROVIDERS: PCP Nurse Practitioner Family; Visit Provider Internal Medicine Cardiovascular Disease
DX: R07.9 Chest pain, unspecified (principal); R94.31 Abnormal electrocardiogram [ECG] [EKG]; B19.10 Unspecified viral hepatitis B without hepatic coma; B19.20 Unspecified viral hepatitis C without hepatic coma; Z72.0 Tobacco use
CPT/HCPCS: 71250; 93306

== ENCOUNTER → 2021-03-22 09:55 | Outpatient (CLI) | payer OTHER, SELFPAY ==
--- NOTE | 2021-03-22 | CA_ITS ---
APPROVED REPORT Exam: Exercise Treadmill Technologist: Kat Manning, Ht: 6 ft 0 in Wt: 161 lbs BSA: 1.94 m2 HR: 84 bpm BP: 146/95 mmHg Indications: CP Medical History Medications: Omeprazole,,,,, EnTECAvir,,,,, Stress Test Details Test: Lance HR Resting HR: 102 bpm Max Heart Rate (APMHR): 178.618445 bpm Max HR Achieved: 157 bpm Target HR (85% APMHR): 151.496254 bpm % of APMHR: 88.20 Recovery HR: 102 bpm BP Resting BP: 158/109 mmHg Max BP: 188/96 mmHg Recovery BP: 147.0/100.0 mmHg ECG Resting ECG: NSR, indeterminant axis Clinical Exercise duration: 06:14 min Highest Stage Achieved: Exercise capacity: 7.0 METs Stress ECG Conclusion Exercised 6:15 on Lance Protocol. Max HR: 157 % of PM: 88% Max BP: 188/96 METs: 7.0 Test stopped due to: Leg fatigue, L shoulder pain. Symptoms: Sharp L upper chest and shoulder pain during exercise, resolving in recovery. Arrhythmias/Ectopy: Rare PVC. ST-T Changes: Allowing for motion artifact the ST response to exercise appears to be within normal. Conclusion: Atypical CP with normal stress EKGs. Echo images reported separately. Test Summary RECOVERY 01:00 0.0 0.0 127 . . . Stop exercise at 06:14 REST . . . . . . . Standing REST 05:01 0.0 0.0 102 . 158/109 . . Stage 1 01:00 10.0 1.7 119 . . . . Stage 1 02:00 10.0 1.7 124 . . . . Stage 1 03:00 10.0 1.7 124 . 188/ 96 . . Stage 2 01:00 12.0 2.5 136 . . . . Stage 2 02:00 12.0 2.5 145 . . . . Stage 2 03:00 12.0 2.5 150 . . . . Stage 3 00:14 14.0 3.4 152 . . . Stop exercise at 06:14 RECOVERY 01:00 0.0 0.0 127 . . . . RECOVERY 02:00 0.0 0.0 119 . . . . RECOVERY 03:00 0.0 0.0 98 . . . . RECOVERY 04:00 0.0 0.0 112 . 166/106 . . RECOVERY 05:00 0.0 0.0 102 . 166/106 . . RECOVERY 05:34 0.0 0.0 102 . 147/100 . . Electronically signed by : Uri Barr MD 03/23/2021 09:15:55
--- NOTE | 2021-03-22 09:56 | CA_ITS ---
APPROVED REPORT EXAM: Comprehensive 2D, Doppler, and color-flow Echocardiogram Insulation Packer: Jessica Mcguire RVT Ht: 6 ft 0 in Wt: 161lbs BSA: 1.94 BP: 128/80 mmHg Indications: CP,LT ARM NUMBNESS,HEPATITIS,HTN Stress Test Details HR Max Heart Rate (APMHR): 178.152163 bpm Target HR (85% APMHR): 151.271260 bpm BP ECG Conclusion 1. Patient exercised on Lance protocol achieved 7 METS of work load on treadmill, there were no EKG changes to suggest ischemia. 2. Resting echocardiogram showed normal left ventricular size and function, with exercise there is increase in contractility of all the segments of the myocardium with hyperdynamic left ventricular systolic response. No obvious wall motion abnormality with exercise to suggest underlying ischemic heart disease. 3. Normal left ventricular systolic function. Electronically signed by : Uri Barr MD 03/23/2021 16:13:31
== END ==
PROVIDERS: PCP Nurse Practitioner Family; Visit Provider Internal Medicine Cardiovascular Disease
DX: R07.9 Chest pain, unspecified (principal); R94.31 Abnormal electrocardiogram [ECG] [EKG]; B19.10 Unspecified viral hepatitis B without hepatic coma; B19.20 Unspecified viral hepatitis C without hepatic coma; Z72.0 Tobacco use
CPT/HCPCS: 93017; 93350

== ENCOUNTER 2022-05-08 13:30 | Emergency (ER) | payer OTHER, SELFPAY ==
[2022-05-08 13:31] VITALS: BP 147/98; PULSE 103; RESP 18; TEMP 36.8; O2SAT 99; BMI 21.7
--- NOTE | 2022-05-08 14:31 | PC.NURSE ---
MATA OROZCO at
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
[2022-05-08 14:53] VITALS: BP 138/96; PULSE 95; RESP 18; TEMP 36.8; O2SAT 98
== END 2022-05-08 14:56 | disposition home or self-care (01) ==
PROVIDERS: Emergency Provider Student in an Organized Health Care Education/Training Program; PCP Emergency Medicine
DX: S13.4XXA Sprain of ligaments of cervical spine, initial encounter (principal); V49.40XA Driver injured in collision with unspecified motor vehicles in traffic accident, initial encounter; B18.1 Chronic viral hepatitis B without delta-agent; B18.2 Chronic viral hepatitis C; F17.210 Nicotine dependence, cigarettes, uncomplicated; E78.5 Hyperlipidemia, unspecified
CPT/HCPCS: 96372; 99283; 99284

== ENCOUNTER → 2022-06-11 14:53 | Outpatient (CLI) | payer OTHER, SELFPAY ==
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
--- NOTE | 2022-06-11 15:23 | HMH.ITSTN ---
XRAY student did a 5 view C-spine but 3 view was ordered. Called Jami MISTRY and she advised that it was ok to change the order to a 5 view.
== END ==
PROVIDERS: PCP Nurse Practitioner Family; Visit Provider Student in an Organized Health Care Education/Training Program
DX: M54.2 Cervicalgia (principal)
CPT/HCPCS: 72050

== ENCOUNTER 2022-07-09 11:00 | Outpatient (RCR) | payer OTHER, SELFPAY ==
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
== END 2022-07-09 11:05 | disposition home or self-care (01) ==
LOC: PT 11:00
PROVIDERS: PCP Nurse Practitioner Family; Visit Provider Nurse Practitioner Family
DX: M54.2 Cervicalgia (principal); S13.4XXA Sprain of ligaments of cervical spine, initial encounter
CPT/HCPCS: 97012; 97110; 97163; 97530

== ENCOUNTER → 2023-01-30 23:31 | Outpatient (CLI) | payer OTHER, SELFPAY ==
[2023-01-30 18:29] LABS: Basophils # 0.1 K/mm3 (0-0.2); Basophils % 0.4 % (0.1-2.0); Eosinophils # 0.2 K/mm3 (0.0-0.4); Eosinophils % 1.7 % (0.1-12.0); Hematocrit 49.2 % (42.0-52.0); Hemoglobin 16.8 g/dL (14.1-18.0); Lymphocytes # 2.1 K/mm3 (0.7-4.5); Lymphocytes % 15.3 % (10-50); Mean Corpuscular Hemoglobin 30.4 pg (27.0-31.2); Mean Corpuscular Volume 89.4 fl (80-94); Mean Platelet Volume 9.7 fl (7.4-10.4); Monocytes # 0.7 K/mm3 (0.1-1.0); Monocytes % 5.3 % (1.7-9.3); Neutrophils # 10.7 K/mm3 (1.8-7.8); Neutrophils % 77.3 % (37.0-80.0); Platelet Count 271 K/mm3 (142-424); Red Cell Distribution Width 13.6 % (11.5-17.5); White Blood Count 13.9 K/mm3 (4.8-10.8)
[2023-01-30 18:32] LABS: Alanine Aminotransferase 18 U/L (12-78); Albumin Level 4.9 g/dl (3.5-5.0); Alkaline Phosphatase 73 U/L (38-126); Anion Gap 16.4 mEq/L (5-15); Aspartate Amino Transferase 34 U/L (17-59); Bilirubin,Direct 0.2 mg/dl (0.0-0.4); Bilirubin,Indirect 0.5 mg/dL (0.0-0.9); Bilirubin,Total 0.7 mg/dl (0.2-1.3); Bilirubin,Unconjugated 0.5 mg/dL (0.0-1.1); Blood Urea Nitrogen 11 mg/dl (9-20); Calcium 9.6 mg/dl (8.4-10.2); Carbon Dioxide 23 mmol/L (22.0-30.0); Chloride 105 mmol/L (98-107); Chol/HDL Ratio 3.2 (1-3.5); Cholesterol 164 mg/dl (140-200); Estimated Glomerular Filt Rate 123 ml/min (>60); GFR (African American) 148 ML/MIN (>60); Glucose 101 mg/dl (74-100); HDL Cholesterol 52 mg/dl (40-60); Magnesium 1.8 mg/dl (1.6-2.3); Potassium 4.4 mmoL/L (3.5-5.1); Sodium 140 mmol/L (136-145); Total Protein,Serum 7.7 g/dl (6.3-8.2); Triglycerides 54 mg/dl (30-150); VLDL Cholesterol 11 mg/dL (0-40)
[2023-01-30 18:42] LABS: Direct LDL Cholesterol 94.22 mg/dL (100-129)
[2023-01-30 18:48] LABS: Free T4 (Free Thyroxine) 1.42 ng/dl (0.78-2.19)
[2023-01-30 19:02] LABS: Thyroid Stimulating Hormone 0.76 uIU/mL (0.465-4.68)
== END ==
PROVIDERS: PCP Nurse Practitioner Family; Visit Provider Student in an Organized Health Care Education/Training Program
DX: E78.5 Hyperlipidemia, unspecified (principal); Z72.0 Tobacco use; Z20.822 Contact with and (suspected) exposure to COVID-19; Z79.899 Other long term (current) drug therapy
CPT/HCPCS: 80048; 80061; 80076; 83735; 84439; 84443; 85025; 87635

== ENCOUNTER 2023-04-18 12:42 | Outpatient (CLI) | payer OTHER, SELFPAY ==
--- NOTE | 2023-04-18 12:48 | CT_ITS ---
APPROVED REPORT Architect Intern: CLINICAL INDICATION Chest Pain TECHNIQUE Image Acquisition: A 128 slice MDCT scanner ([employer] Overlay Studioa View) was used for data acquisition. A noncontrast coronary calcium scan was performed. A CT attenuation threshold of 130 Hounsfield units (HU) was used for the detection of calcium in contiguous voxels of 1 sq mm in area to be counted as individual lesions. Bolus tracking in the ascending aorta with a threshold of 180 HU was performed. Immediately afterwards, ECG synchronized cardiac CT was then performed from the cardiac base to apex using retrospective gating with ECG tube current modulation. A total of 85 mL of Isovue 370 mg/mL contrast medium was administered at 5 mL/sec followed by a saline flush using a biphasic injection protocol. A tube voltage of 120 KVp was used. The average heart rate at the time of acquisition was 51 bpm and regular. Image Reconstruction Transaxial images were reconstructed at 0.67 mm slide thickness. Data was reviewed interactively on an advanced workstation capable of 2 and 3-dimensional displays in all conventional reconstruction formats, including multiplanar reformations, maximum intensity projections, curved multiplanar reformations, and volume rendered reconstructions. When applicable, selected routine images describing the relevant coronary anatomy and pathology were saved and sent to PACS. Complications None Technical Quality Overall image quality was good. Coronary artery opacification was adequate. Total DLP (Dose-Length Product) is 1913.0 mGy-cm. The reported value represents the total of one or more individual components during the CT acquisition of this date and at this time, and as such, the same value may appear in more than one CT report depending on the interpreting/reporting physicians. COMPARISON None FINDINGS CT Coronary Calcium Scoring LMA (Left Main Artery) = 0 LAD (Left Anterior Descending) = 0 LCX (Left Coronary Circumflex) = 0 RCA (Right Coronary Artery) = 0 Total Calcium Score = 0 using the AJ-130 method. The interpretation of the calcium heart score is based on the following continuum*: 0 = no calcified plaque detected (risk of coronary artery disease is very low ??? less than 5%) 1-10 = calcium detected in extremely minimal levels (risk of coronary diseases is still low ??? less than 10%) 11-100 = mild levels of plaque detected with certainty (mild or minimal narrowing of heart arteries is likely) 101-400 = definite,at least moderate levels of plaque detected (relatively high risk of a heart attack within 3-5 years) >401-999 = extensive levels of plaque detected (high risk of heart attack, high levels of vascular disease are present, high likelihood of at least one significant coronary narrowing) *The calcium heart score quantifies the burden of coronary calcification/plaque in the coronary arteries. The calcium heart score is not able to evaluate the presence or burden of non-calcified (i.e. soft) plaque. There is no identifiable calcification in the aortic valve, mitral annulus or mitral valve, pericardium, or myocardium. Coronary CT Angiography The coronary arterial system is right dominant. Quantitative Stenosis Grading: Left Main (LM): The left main originates normally from the left sinus of Valsalva. The LM bifurcates into the left anterior descending artery and left circumflex artery. The LM is patent with no evidence of atherosclerosis. Left Anterior Descending (LAD) and Diagonal Branches: The LAD gives off 3 diagonal branches. The LAD and its branches are patent with no evidence of atherosclerosis. There is no evidence of LAD bridge. Left Circumflex (LCX) and Obtuse Marginals (OM): The LCX gives off 2 Obtuse Marginal (OM) branch(es). The LCX and its branches are patent with no evidence of atherosclerosis. Right Coronary Artery (RCA): The RCA originates normally from the right sinus of Valsalva. The RCA gives off a posterior descending artery (PDA) and posterolateral (PL) branches. The RCA and its branches are patent with no evidence of atherosclerosis. Non-Coronary Cardiac Findings: Analysis of the left ventricular (LV) structure and function was performed after 3-D reconstruction of the LV from axial images, with user-corrected automatic contouring for assessment of LV volumes and user-defined reconstruction from oblique planes for measurement of 3-D cardiac structure and function. LVEDV: 190 mL LVESV: 90 mL SV: 100 mL LVEF: 52.5 % -The left ventricle is normal in size with normal left ventricular systolic function. -There is no left atrial appendage filling defect. Two right pulmonary veins and two left pulmonary veins drain normally into the left atrium. -No pericardial thickening or calcification. -Central and branch pulmonary arteries in the [id number] are unremarkable. -Thoracic aorta within the visualized thoracic aortic-branches in the [id number] is unremarkable. Extracardiac Structures No significant extra-cardiac findings. IMPRESSION -No coronary calcification with an Agatston score = 0 using the AJ-130 method. -No evidence of significant flow-limiting atherosclerosis of the coronary arteries. -CAD-RADS 0. Management recommendations per ACC/AHA guidelines*, as clinically appropriate. -No significant non-coronary cardiac findings in the visualized segments of the chest. *Recommendations: CAD RADS 0: Reassurance. Consider non-atherosclerotic causes of chest pain. CAD RADS 1: Consider non-atherosclerotic causes of chest pain. Consider preventive therapy and risk factor modification. CAD RADS 2: Consider non-atherosclerotic causes of chest pain. Consider preventive therapy and risk factor modification, particularly for patients with nonobstructive plaque in multiple segments. CAD RADS 3: Consider further functional testing. Consider symptom-guided anti-ischemic and preventive pharmacotherapy as well as risk factor modification per published guideline statements. CAD RADS 4A: Consider further functional testing or invasive coronary angiography with revascularization per published guideline statements. Consider symptom-guided anti-ischemic and preventive pharmacotherapy as well as risk factor modification per published guideline statements. CAD RADS 4B: Invasive coronary angiography recommended with revascularization per published guideline statements. Consider symptom-guided anti-ischemic and preventive pharmacotherapy as well as risk factor modification per published guideline statements. CAD RADS 5: Consider invasive angiography and/or viability assessment with revascularization per published guideline statements. Consider symptom-guided anti-ischemic and preventive pharmacotherapy as well as risk factor modification per published guideline statements. CRITICAL RESULT None COMMUNICATION Per this written report The coronary and cardiac findings of this CCTA were reviewed, reported, and signed by Ceasar Garcia MD (Plan Examiner) Conclusion Electronically signed by : Mackenzie Garcia MD 04/18/2023 17:08:48
[2023-04-18 13:05] VITALS: BMI 21.2
[2023-04-18 13:10] VITALS: BP 115/79; PULSE 76; RESP 17; O2SAT 98
[2023-04-18] MEDS: METOPROLOL TARTRATE 50MG TABLET 100 MG PO (13:10)
[2023-04-18 13:27] LABS: Anion Gap 8.9 mEq/L (5-15); Blood Urea Nitrogen 9 mg/dl (9-20); Calcium 8.7 mg/dl (8.4-10.2); Carbon Dioxide 26 mmol/L (22.0-30.0); Chloride 108 mmol/L (98-107); Creatinine Clearance Estimated 136 mL/min (50-200); Estimated Glomerular Filt Rate 123 ml/min (>60); GFR (African American) 148 ML/MIN (>60); Glucose 92 mg/dl (74-100); Potassium 3.9 mmoL/L (3.5-5.1); Sodium 139 mmol/L (136-145)
[2023-04-18 14:05] VITALS: BP 120/57; PULSE 56; RESP 17; O2SAT 97
[2023-04-18] MEDS: NITROGLYCERIN 0.4MG SL TABLET 0.800000000000000044 MG SL (14:05)
[2023-04-18 14:15] VITALS: BP 96/58; PULSE 55; RESP 17; O2SAT 96
[2023-04-18] MEDS: IOPAMIDOL-370 (76%);100ML BOTTLE 85 ML IV (14:57)
[2023-04-18] MEDS: 0.9 % SODIUM CHLORIDE 50 ML VIAL IV (14:57)
[2023-04-18] MEDS: SODIUM CHLORIDE 0.9% 10ML SYR (RAD ONLY) 10 ML IV (14:57)
== END 2023-04-18 14:15 | disposition home or self-care (01) ==
PROVIDERS: PCP Nurse Practitioner Family; Visit Provider Family Medicine
DX: R07.89 Other chest pain (principal); I20.89 Other forms of angina pectoris; R94.31 Abnormal electrocardiogram [ECG] [EKG]; M79.602 Pain in left arm; M89.8X1 Other specified disorders of bone, shoulder
CPT/HCPCS: 75571; 75574; 80048; Q9967

== ENCOUNTER 2024-02-03 14:56 | Outpatient (CLI) | payer OTHER, SELFPAY ==
[2024-02-04 09:34] LABS: Hep B Surface Ab, Qual Reactive (.)
[2024-02-05 14:24] LABS: HBV IU/mL 20 IU/mL (.); log10 HBV as IU/mL 1.301 (.)
== END 2024-02-03 23:59 | disposition home or self-care (01) ==
LOC: LAB 14:56
PROVIDERS: PCP Nurse Practitioner Family; Visit Provider Student in an Organized Health Care Education/Training Program
DX: B18.1 Chronic viral hepatitis B without delta-agent (principal)
CPT/HCPCS: 36415; 86706; 87517

== ENCOUNTER 2024-05-05 08:45 | Outpatient (CLI) | payer OTHER, SELFPAY ==
--- NOTE | 2024-05-05 08:48 | US_ITS ---
FINAL REPORT TECHNIQUE: Multiple transverse and longitudinal images CLINICAL HISTORY: HEPATITIS B COMPARISON: None FINDINGS: There is borderline gallbladder wall thickening. Echogenic foci are seen within or adjacent to the gallbladder wall suspicious for cholesterolosis. No definite gallstones identified. No biliary ductal dilatation is appreciated. No fluid collections are seen. Limited portions of the right liver are unremarkable. Limited portions of the right kidney are unremarkable. 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 No evidence of biliary obstruction. Reviewed, Interpreted and Dictated by Anders Oliver MD Transcribed by Rubi Haro Authenticated and [facility]
[2024-05-05 09:54] LABS: Basophils # 0.1 K/mm3 (0-0.2); Basophils % 0.7 % (0.1-2.0); Eosinophils # 0.1 K/mm3 (0.0-0.4); Hematocrit 47.7 % (42.0-52.0); Hemoglobin 15.6 g/dL (14.1-18.0); Lymphocytes # 2.8 K/mm3 (0.7-4.5); Lymphocytes % 25.4 % (10-50); Mean Corpuscular HGB Conc 32.7 g/dL (31.8-35.4); Mean Corpuscular Hemoglobin 28.6 pg (27.0-31.2); Mean Corpuscular Volume 87.5 fl (80-94); Mean Platelet Volume 9.7 fl (7.4-10.4); Monocytes # 0.7 K/mm3 (0.1-1.0); Monocytes % 6.5 % (1.7-9.3); Neutrophils # 7.1 K/mm3 (1.8-7.8); Neutrophils % 66.1 % (37.0-80.0); Platelet Count 243 K/mm3 (142-424); Red Blood Count 5.45 M/mm3 (4.60-6.20); Red Cell Distribution Width 12.9 % (11.5-17.5); White Blood Count 10.8 K/mm3 (4.8-10.8)
[2024-05-05 10:17] LABS: Alanine Aminotransferase 15 U/L (12-78); Albumin Level 4.5 g/dl (3.5-5.0); Alkaline Phosphatase 59 U/L (38-126); Anion Gap 12.3 mEq/L (5-15); Aspartate Amino Transferase 24 U/L (17-59); Bilirubin,Total 0.4 mg/dl (0.2-1.3); Blood Urea Nitrogen 14 mg/dl (9-20); Calcium 9.8 mg/dl (8.4-10.2); Carbon Dioxide 27 mmol/L (22.0-30.0); Chloride 106 mmol/L (98-107); Estimated Glomerular Filt Rate 105 ml/min (>60); GFR (African American) 126 ML/MIN (>60); Globulin 2.3 g/dL (1.3-3.2); Glucose 89 mg/dl (74-100); Potassium 4.3 mmoL/L (3.5-5.1); Sodium 141 mmol/L (136-145); Total Protein,Serum 6.8 g/dl (6.3-8.2)
[2024-05-06 06:03] LABS: Hep B Surface Ab, Qual Reactive (.)
[2024-05-06 08:17] LABS: AFP, Tumor Marker 3.9 ng/mL (0.0-6.9)
[2024-05-07 20:13] LABS: HBV IU/mL <10 IU/mL (.)
== END 2024-05-05 23:59 | disposition home or self-care (01) ==
LOC: RAD 08:46
PROVIDERS: PCP Nurse Practitioner Family; Visit Provider Student in an Organized Health Care Education/Training Program
DX: B18.1 Chronic viral hepatitis B without delta-agent (principal)
CPT/HCPCS: 36415; 76705; 80053; 82105; 85025; 86706; 87517

== ENCOUNTER 2024-06-17 15:00 | Outpatient (CLI) | payer OTHER, SELFPAY ==
[2024-06-18 08:18] LABS: Hepatitis B Surface Antigen Negative (Negative)
== END 2024-06-17 23:59 | disposition home or self-care (01) ==
LOC: LAB 15:01
PROVIDERS: PCP Nurse Practitioner Family; Visit Provider Student in an Organized Health Care Education/Training Program
DX: B18.1 Chronic viral hepatitis B without delta-agent (principal)
CPT/HCPCS: 36415; 87340

== ENCOUNTER 2024-12-02 14:38 | Outpatient (CLI) | payer SELFPAY ==
--- OUTSIDE RECORDS SUMMARY | 2024-12-06 14:40 | XMS_ITS | Clinical Summary ---
Author Organization Healthcare Address [address] [place] [address] Care Team Providers Care Operating Manager Name Role Phone Delfin Carney APRN Primary Care Provider [phone] Allergies No known active allergies Medications omeprazole (PriLOSEC) [address] capsule Take 1 capsule (40 mg) by mouth 1 (one) time each day. Do not crush or chew. Active cyclobenzaprine (Flexeril) 10 MG tablet Take 1 tablet (10 mg) by mouth 3 (three) times a day if needed for muscle spasms. Active rosuvastatin (Crestor) 10 MG tablet Take 1 tablet (10 mg) by mouth 1 (one) time each day. 03/28/2022 Active Active Problems Problem Noted Date Diagnosed Date HLD (hyperlipidemia) 04/22/2024 Gastroesophageal reflux disease without esophagi tis 04/29/2023 Pure hypercholesterolemia 04/29/2023 Hepatic hemangioma 05/23/2020 Abnormal ultrasound of abdomen 01/15/2019 Immunizations Immunization Administration Dates Next Due Hep A, Adult 05/14/2019,10/27/2018 [facility] COVID-19 Vaccine (Purple Cap) 12 + 01/05/2021 TD (adult), 2 Lf tetanus tox oid, preservative free, adsorbed 07/29/1995 Family History Medical History Relation Name Comments Alcohol abuse Mother Natalia greene Other cancer Other Relation Name Status Comments Mother Natalia greene Other Social History Tobacco Use Types Packs/Day Years Used Date Smoking Tobacco: Every Day Cigarettes 0.3 37.9 Started: 1997 Smokeless Tobacco: Never Tobacco Cessation:Ready to Q uit: Not Asked; Counseling Given: Not Answered Alcohol Use Standard Drinks/Week Comments Not Currently 0 (1 standard drink = 0.6 oz pure alcohol) Alcoholic Drinks/day: Former consumption of alcohol PHQ-2 Answer Date Recorded Patient Health Questionnaire-2 Score 0 10/22/2023 PHQ-2A Answer Date Recorded Depression Risk 0 05/20/2022 Sex and Gender Information Value Date Recorded Sex Assigned at Not on file Legal Sex Male 7:19 PM EDT Gender Identity Not on file Sexual Orientation Not on file Last Filed Vital Signs Vital Sign Reading Time Taken Comments Blood Pressure 112/76 10/22/2023 2:46 PM EDT Pulse 61 10/22/2023 2:46 PM EDT Temperature 36.8 C (98.2 F) 04/29/2023 3:14 PM EST Respiratory Rate - - Oxygen Saturation 97% 10/22/2023 2:46 PM EDT Inhaled Oxygen Concentration - - Weight 73.6 kg (162 lb 4.1 oz) 10/22/2023 2:46 P M EDT Height 182.9 cm (6') 10/22/2023 2:46 PM EDT Body Mass Index 22.01 10/22/2023 2:46 PM EDT Plan of Treatment Health Maintenance Due Date Last Done Comments [facility]-HIV Screening 1978 [facility]-/Child/Adol SDOH Screenings 1978 [facility]-DTaP,Tdap,and Td Vaccines (2 - Tdap) 07/30/1995 07/29/1995 [facility]- SDOH Screenings 1996 [facility]-Adult SDOH Screenings 1996 [facility]-Hepatitis B Vaccines (1 of 3 - 19+ 3-dose series) 1997 04/22/2024, 10/22/2023, 10/22/2023, Additional history exists [facility]-Pneumococcal Vaccine: Pediatrics (0 to 5 Years) and At-Risk Patients (6 to 49 Years) (1 of 2 - PCV) 1997 CT Colonography 11/13/2023 Colonoscopy 11/13/2023 FIT-DNA 11/13/2023 FIT 11/13/2023 FOBT 11/13/2023 Sigmoidoscopy 11/13/2023 [facility]-Colorectal Cancer Screening 11/13/2023 [id number] Vaccine ( season) 2023 03/17/2021, 01/05/2021 [facility]-Depression Screening 10/21/2024 10/22/2023, 04/23 [facility]-Influenza Vaccine (#1) 2024 [facility]-Zoster Vaccines (1 of 2) 2028 [facility]-Hepatitis A Vaccines Completed 05/14/2019, 12/2018 HPV Vaccines Aged Out No longer eligi ble based on patient's age to complete this topic [facility]-HIB Vaccines Aged Out No longer e ligible based on patient's age to complete this topic [facility]-IPV Vaccines Aged Out No longer e ligible based on patient's age to complete this topic [facility]-Rotavirus Vaccines Aged Out No lo nger eligible based on patient's age to complete this topic Insurance [place] [id number] [employer] MEDICA[employer] Care Teams Operating Manager Relationship Specialty Start Date End Date Delfin Carney APRN [address] [place] [address] [place] [id number] PCP - General 04/29/23
== END 2024-12-02 23:59 ==
LOC: LAB.DROPOF 12-06 14:39
PROVIDERS: PCP Nurse Practitioner Family; Visit Provider Student in an Organized Health Care Education/Training Program
DX: J06.9 Acute upper respiratory infection, unspecified (principal)
CPT/HCPCS: 87635

== ENCOUNTER 2025-04-07 07:42 | Emergency (ER) | payer OTHER, SELFPAY ==
[2025-04-07 07:48] VITALS: BP 128/87; PULSE 77; O2SAT 98
[2025-04-07 07:49] VITALS: BP 128/87; PULSE 71; RESP 17; TEMP 36.8; O2SAT 97; BMI 23.7
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
--- NOTE | 2025-04-07 07:57 | XR_ITS ---
PROCEDURE INFORMATION: Exam: XR Left Knee Exam date and time: 04/07/2025 8:03 AM Age: 44 years old Clinical indication: Pain; Thigh; Left; Additional info: Atraumatic left femur pain TECHNIQUE: Imaging protocol: Radiologic exam of the left knee. Views: 3 views. COMPARISON: CR XR FEMUR LT 2V 04/07/2025 8:02 AM FINDINGS: Bones/joints: Bones are intact with preservation of the tibiofemoral joint. No fracture or acute bony abnormality. No significant arthritic change. Soft tissues: Unremarkable. No joint effusion. IMPRESSION: No acute findings.
--- NOTE | 2025-04-07 07:57 | XR_ITS ---
PROCEDURE INFORMATION: Exam: XR Left Femur Exam date and time: 04/07/2025 8:02 AM Age: 44 years old Clinical indication: Pain; Thigh; Left; Additional info: Atraumatic left femur pain TECHNIQUE: Imaging protocol: Radiologic exam of the left femur. Views: 2 views. COMPARISON: 1. CR XR HIP LT 2-3V W/PELVIS 04/07/2025 8:01 AM 2. CR XR KNEE LT 3V 04/07/2025 8:03 AM FINDINGS: Bones/joints: AP and lateral views of the left femur. Left hip is excluded from the field of view and left knee partially excluded, however, these regions are visualized on the dedicated hip and knee series. Bone mineralization is normal. No fracture or acute bony abnormality. No destructive change. Soft tissues: Unremarkable. IMPRESSION: No acute findings.
--- NOTE | 2025-04-07 07:57 | XR_ITS ---
PROCEDURE INFORMATION: Exam: XR Left Hip Exam date and time: 04/07/2025 8:01 AM Age: 44 years old Clinical indication: Hip pain; Left hip; Additional info: Atraumatic left femur pain TECHNIQUE: Imaging protocol: Radiologic exam of the left hip. Views: 2 or 3 views hip with pelvis when performed. COMPARISON: No relevant prior studies available. FINDINGS: Bones/joints: Bones are intact. Hip joints and sacroiliac joints are preserved. No fracture or acute bony abnormality. No significant arthritic change. Soft tissues: Unremarkable. IMPRESSION: No acute findings.
[2025-04-07 08:01] VITALS: BP 112/69; PULSE 81; O2SAT 97
--- OUTSIDE RECORDS SUMMARY | 2025-04-07 08:03 | XMS_ITS | Clinical Summary ---
Author Organization Healthcare Address [address] [place] [address] Care Team Providers Care Controls Designer Name Role Phone Delfin Carney APRN Primary Care Provider [phone] Allergies No known active allergies Medications omeprazole [...] Dates Next Due Hep A, Adult 05/14/2019,10/27/2018 Pf[facility] COVID-19 Vaccine (Purple Cap) 12 + 01/05/2021 TD (adult), 2 Lf tetanus tox oid, preservative free, adsorbed 07/29/1995 Family History Medical History Relation Name Comments Alcohol abuse Mother Natalia greene Other cancer Other Relation Name Status Comments Mother Natalia greene Other Social History Tobacco Use Types Packs/Day Years Used Date Smoking Tobacco: Every Day Cigarettes 0.3 38.2 Started: 1997 Smokeless Tobacco: Never Tobacco Cessation:Ready [...] 11/13/2023 Sigmoidoscopy 11/13/2023 [facility]-Colorectal Cancer Screening 11/13/2023 [facility]-Depression Screening 10/21/2024 10/22/2023, 04/23 [id number] Vaccine ( - season) 2024 03/17/2021, 01/05/2021 [facility]-Influenza Vaccine (#1) 2024 [facility]-Zoster Vaccines (1 of 2) 2028 [facility]-Hepatitis A Vaccines Completed 05/14/2019, 12/2018 HPV Vaccines (No Doses Required) Completed [facility]-HIB Vaccines Aged Out No longer e ligible based on patient's age to complete this topic [facility]-IPV Vaccines Aged Out No longer e ligible based on patient's age to complete this topic [facility]-Rotavirus Vaccines Aged Out No lo nger eligible based on patient's age to complete [place] [id number] [facility] MEDICAID Care Teams Controls Designer Relationship Specialty Start Date End Date Delfin Carney APRN [address] [place] [address] [place], [place] [id number] PCP - General 04/29/23
--- NOTE | 2025-04-07 08:16 | PC.NURSE ---
0811 Patient to x-ray via wheelchair
[2025-04-07] MEDS: ACETAMINOPHEN 500MG TAB 1000 MG PO (08:21)
[2025-04-07] MEDS: METHOCARBAMOL 500MG TABLET 1500 MG PO (08:21)
[2025-04-07] MEDS: KETOROLAC 15MG/ML VIAL 15 MG IV (08:22)
[2025-04-07 08:26] LABS: Hematocrit 47.0 % (42.0-52.0); Hemoglobin 15.9 g/dL (14.1-18.0); Immature Granulocytes % 0.2 %; Mean Corpuscular HGB Conc 33.8 g/dL (31.8-35.4); Mean Corpuscular Hemoglobin 29.5 pg (27.0-31.2); Mean Corpuscular Volume 87.2 fl (80-94); Nucleated Red Blood Cells % 0 %; Platelet Count 235 K/mm3 (142-424); Red Blood Count 5.39 M/mm3 (4.60-6.20); Red Cell Distribution Width-SD 41.2 fL; White Blood Count 12.6 K/mm3 (4.8-10.8)
--- NOTE | 2025-04-07 08:33 | PC.NURSE ---
2nd blood cultures drawn and sent to lab; blue band placed on left wrist. No other needs at this time.
[2025-04-07 08:38] LABS: Albumin Level 4.6 g/dl (3.5-5.0); Chloride 108 mmol/L (98-107); Potassium 4.2 mmoL/L (3.5-5.1); Sodium 137 mmol/L (136-145)
[2025-04-07 08:41] LABS: Alanine Aminotransferase 17 U/L (12-78); Albumin/Globulin Ratio 1.7 (1.1-1.8); Alkaline Phosphatase 63 U/L (38-126); Anion Gap 8.2 mEq/L (5-15); Aspartate Amino Transferase 30 U/L (17-59); Bilirubin,Total 0.6 mg/dl (0.2-1.3); Blood Urea Nitrogen 14 mg/dl (9-20); Carbon Dioxide 25 mmol/L (22.0-30.0); Creatinine Clearance Estimated 104 mL/min (50-200); Creatinine,Serum 1.00 mg/dl (0.66-1.25); Estimated Glomerular Filt Rate 80 ml/min (>60); GFR (African American) 97 ML/MIN (>60); Globulin 2.7 g/dL (1.3-3.2); Total Protein,Serum 7.3 g/dl (6.3-8.2)
[2025-04-07 08:42] LABS: Calcium 9.2 mg/dl (8.4-10.2); Glucose 101 mg/dl (74-100)
[2025-04-07 08:59] LABS: C-Reactive Protein 4.0 mg/L (0-4)
[2025-04-07 09:00] VITALS: PULSE 67; O2SAT 98
--- NOTE | 2025-04-07 09:07 | PC.NURSE ---
pt ambulatory to restroom without complications to provide UA
--- NOTE | 2025-04-07 09:09 | PC.NURSE ---
UA sent to lab
[2025-04-07 09:14] LABS: Microscopic, Urine URINE MICROSCOPIC (MICROSCOPIC)
[2025-04-07 09:17] LABS: Bilirubin,Urine Negative (Negative); Color,Urine YELLOW (Yellow); Glucose,Urine (UA) Negative (Negative); Ketones,Urine Negative (Negative); Leukocyte Esterase,Urine Negative (Negative); PH,Urine 6.0 (5.0-8.5); Protein,Urine Negative (Negative); Specific Gravity, Urine 1.025 (1.005-1.030); Urobilinogen,Urine 0.2 EU/dl (0.2)
--- NOTE | 2025-04-07 09:33 | PC.NURSE ---
rounded on patient; no needs at this time. pts family at [facility]
[2025-04-07 09:35] LABS: Bacteria,Urine Trace /lpf; Mucus,Urine 1+ /lpf; WBC,Urine Occasional #/hpf (0-3)
[2025-04-07 10:00] VITALS: BP 117/80; PULSE 70; RESP 16; TEMP 36.8; O2SAT 98
== END 2025-04-07 10:08 | disposition home or self-care (01) ==
PROVIDERS: Emergency Provider Student in an Organized Health Care Education/Training Program; PCP Nurse Practitioner Family
DX: M79.605 Pain in left leg (principal); F17.210 Nicotine dependence, cigarettes, uncomplicated
CPT/HCPCS: 73502; 73552; 73562; 80053; 81001; 85025; 85651; 86140; 87040; 87389; 87491; 87591; 87661; 96374; 99285; J1885